=== PATIENT | female | born 1975 | race Caucasian/White ===

== ENCOUNTER 2019-11-28 07:36 | Emergency (ER) | payer OTHER ==
[2019-11-28] MEDS ORDERED: IBUPROFEN 600 MG TABLET PO ONE (09:54)
--- NOTE | 2019-11-28 09:55 | ER Document Report ---
ED General - General Stated Complaint: HEADACHE Time Seen by Provider: 11/28/19 09:53 Primary Care Provider: ENRIQUE CULLEN NP [Primary Care Provider] - Follow up as needed Notes: Patient presents with right-sided headache gradual onset, nonpulsatile, for about 3 days in the setting of hypertension. She takes hydrochlorothiazide and has not no increased or changes in her dosing. She had no urinary symptoms. She denies photophobia neck pain fevers, has had headaches off and on for years and was never informed diagnosis migraines. No falls no trauma no unilateral neuro symptoms. Feels like her hands are puffy, but no leg swelling no shortness of breath orthopnea chest pain or other symptoms. TRAVEL OUTSIDE OF THE [place] IN LAST 30 DAYS: No - Related Data Allergies/Adverse Reactions: No Known Allergies Allergy (Verified 11/28/19 10:05) Past Medical History - General Information source: Patient - Social History Smoking Status: Unknown if Ever Smoked Family History: Reviewed & Not Pertinent - Past Medical History Cardiac Medical History: Reports: Hx Hypertension Past Surgical History: Reports: Hx Tonsillectomy - Immunizations Hx Diphtheria, Pertussis, Tetanus Vaccination: Yes Review of Systems - Review of Systems Notes: REVIEW OF SYSTEMS GEN: Denies fever, chills, weight loss ENT: Denies sore throat, nasal discharge, ear pain EYES: Denies blurry vision, eye pain, discharge CV: Denies chest pain, palpitations, questionable hand edema RESP: Denies cough, shortness of breath, wheezing GI: Denies abdominal pain, nausea, vomiting, diarrhea MSK: Denies joint pain/swelling, edema, SKIN: Denies rash, skin lesions LYMPH: Denies swollen glands/lymph nodes NEURO: Headache, denies focal weakness or numbness, dizziness PSYCH: Denies depression, suicidal or homicidal ideation PHYSICAL EXAMINATION General: No acute distress, well-nourished Head: Atraumatic, normocephalic ENT: Mouth normal, oropharynx moist, no exudates or tonsillar enlargement Eyes: Conjunctiva normal, pupils equal, lids normal Neck: No JVD, supple, no guarding CVS: Normal rate, regular rhythm, no murmurs Resp: No resp distress, equal and normal breath sounds bilaterally GI: Nondistended, soft, no tenderness to palpation, no rebound or guarding Ext: No deformities, no edema, normal range of motion in upper and lower ext Back: No CVA or midline TTP Skin: No rash, warm Lymphatic: No lymphadeopathy noted Neuro: Awake, alert. Face symmetric. GCS 15. Normal gait normal speech language fluent memory intact no pronator drift cranial nerves normal. Sensation grossly intact in all 4 extremities. Physical Exam - Vital signs Vitals: Temp Pulse Resp BP Pulse Ox 98.5 F 82 16 162/93 H 99 11/28/19 07:40 11/28/19 07:40 11/28/19 07:40 11/28/19 07:40 11/28/19 07:40 Course - Re-evaluation Re-evalutation: 11/28/19 10:46 Headache with mostly benign features in the setting of mild hypertension and history thereof No unilateral neuro features no features concerning for SAH or meningitis or stroke No imaging necessary Has some subjective edema in her hands but I not appreciate any anasarca or true edema. She has no symptoms congestive heart failure renal failure, and I do not think she needs labs or an EKG. We will give her a headache cocktail, and her pressure should come down on its own. Despite this her pressure is only 160 and a no think she has any imminent danger and can be discharged home safely with follow-up primary care for dosage adjustment and further testing and treatment. I have discussed with the patient there likely diagnosis, aftercare plan, follow-up plans and my usual and customary return precautions. They verbalized understanding of this. - Vital Signs Vital signs: Temp Pulse Resp BP Pulse Ox 98.5 F 82 16 162/93 H 99 11/28/19 09:30 11/28/19 07:40 11/28/19 07:40 11/28/19 07:40 11/28/19 07:40 Discharge - Discharge Clinical Impression: Hypertension Qualifiers: Hypertension type: unspecified Qualified Code(s): I10 - Essential (primary) hypertension Condition: Good Disposition: HOME, SELF-CARE Instructions: High Blood Pressure ([facility]) Referrals: ENRIQUE CULLEN NP [Primary Care Provider] - Follow up as needed
[2019-11-28] MEDS ORDERED: PROMETHAZINE HCL INJ 50 MG/1 ML VIAL IM PRN (10:20)
[2019-11-28] MEDS ORDERED: PROMETHAZINE HCL INJ 25 MG/1 ML VIAL ONE (10:29)
[2019-11-28 11:06] VITALS: BP 140/84
== END 2019-11-28 11:26 | disposition home or self-care (01) ==
LOC: ER 07:36
DX: I10 Essential (primary) hypertension (principal); R51 Headache; Z79.899 Other long term (current) drug therapy
CPT/HCPCS: 99282; J2550